=== PATIENT | male | born 1965 | race Caucasian/White ===

== ENCOUNTER 2019-03-06 19:07 | Emergency (ER) | payer OTHER ==
[~2019-03-06] VITALS: Ht 172.7 cm; Wt 104.3 kg
[2019-03-06] MEDS ORDERED: SEPTDS PO (20:05)
[2019-03-06] MEDS ORDERED: CEPHALEXIN500 M1 PO (20:05)
== END 2019-03-06 20:45 | disposition home or self-care (01) ==
LOC: ED 19:07
DX: L02.411 Cutaneous abscess of right axilla (principal)

== ENCOUNTER 2019-05-14 10:33 | Emergency (ER) | payer OTHER ==
[~2019-05-14] VITALS: Ht 172.7 cm; Wt 104.3 kg
[~2019-05-14 10:33] MED LIST: CEPHALEXIN500 M1 PO; SEPTDS PO
[2019-05-14] MEDS ORDERED: DOXYCYCLINE100 M3 PO (11:45)
[2019-05-14] MEDS ORDERED: PROVENTIL HFA6.7 GM INH (11:45)
[2019-05-14] MEDS ORDERED: PREDNISONE20 M1 PO (11:45)
[2019-05-14] MEDS ORDERED: TESSALON PERLE100 M1 PO (11:45)
== END 2019-05-14 11:47 | disposition home or self-care (01) ==
LOC: ED 10:33
DX: J40 Bronchitis, not specified as acute or chronic (principal); F12.90 Cannabis use, unspecified, uncomplicated; Z79.2 Long term (current) use of antibiotics